=== PATIENT | male | born 1955 | race Caucasian/White ===

== ENCOUNTER 2022-10-06 11:35 | Day surgery (SDC) | payer OTHER ==
[~2022-10-06] VITALS: Ht 170.2 cm; Wt 93.3 kg
[2022-10-06] MEDS ORDERED: METF500 (12:03)
[2022-10-06] MEDS ORDERED: Actos15 MG (12:03)
[2022-10-06] MEDS ORDERED: TOPIRAMATE ER100 M1 (12:04)
[2022-10-06] MEDS ORDERED: TERB250 (12:04)
[2022-10-06] MEDS ORDERED: Crestor20 MG (12:04)
[2022-10-06] MEDS ORDERED: Adipex-P37.5 MG (12:04)
[2022-10-06] MEDS ORDERED: VALS80 (12:05)
[2022-10-06] MEDS ORDERED: CETI5 (12:05)
[2022-10-06] MEDS ORDERED: OMEGA-3 + VITA200 ML (12:05)
[2022-10-06] MEDS ORDERED: ASPI81CH (12:05)
[2022-10-06] MEDS ORDERED: MERIBIN5 MG (12:06)
== END 2022-10-06 13:35 | disposition home or self-care (01) ==
LOC: ORSCSDS 11:35
PROVIDERS: Surgery
PROC: 0DBL8ZX Excision of Transverse Colon, Via Natural or Artificial Opening Endoscopic, Diagnostic (ICD-10-PCS; principal; 2022-10-06 13:00)
PROC: 0DBK8ZX Excision of Ascending Colon, Via Natural or Artificial Opening Endoscopic, Diagnostic (ICD-10-PCS; principal; 2022-10-06 13:00)
DX: Z12.11 Encounter for screening for malignant neoplasm of colon (principal); D12.2 Benign neoplasm of ascending colon; D12.3 Benign neoplasm of transverse colon; K57.30 Diverticulosis of large intestine without perforation or abscess without bleeding; K64.8 Other hemorrhoids; E11.42 Type 2 diabetes mellitus with diabetic polyneuropathy; E78.2 Mixed hyperlipidemia; I10 Essential (primary) hypertension; Z86.010 Personal history of colon polyps; Z87.891 Personal history of nicotine dependence; E66.9 Obesity, unspecified; Z68.33 Body mass index [BMI] 33.0-33.9, adult; Z79.82 Long term (current) use of aspirin; Z79.84 Long term (current) use of oral hypoglycemic drugs; Z79.899 Other long term (current) drug therapy
CPT/HCPCS: 82947; 88305; J2704; J7120